=== PATIENT | male | born 1990 | race Caucasian/White ===

== ENCOUNTER 2018-05-23 17:43 | Emergency (ER) | payer OTHER ==
[~2018-05-23] VITALS: Ht 175.3 cm; Wt 95.3 kg
[2018-05-23] MEDS ORDERED: NORCO 5/3251 TABLET PO (19:27)
[2018-05-23 19:44] VITALS: BP 144/107
== END 2018-05-23 19:57 | disposition home or self-care (01) ==
LOC: EME 17:43
DX: M54.9 Dorsalgia, unspecified (principal); G89.29 Other chronic pain; F17.200 Nicotine dependence, unspecified, uncomplicated; Z53.20 Procedure and treatment not carried out because of patient's decision for unspecified reasons